=== PATIENT | female | born 1970 | race Caucasian/White ===

== ENCOUNTER 2021-02-17 11:01 | Outpatient (CLI) | payer OTHER | END 2021-02-17 11:02 | disposition home or self-care (01) | LOC: DTY/OP 11:01 | PROVIDERS: ATTEND Specialist | DX: Z01.818 Encounter for other preprocedural examination (principal); E66.01 Morbid (severe) obesity due to excess calories; Z68.44 Body mass index [BMI] 60.0-69.9, adult | CPT/HCPCS: 97802 ==

== ENCOUNTER 2021-03-19 09:47 | Outpatient (CLI) | payer MEDICARE ==
[2021-03-19 17:35] LABS: SARS-CoV-2 PCR by NAA Not Detected (NotDetected)
== END 2021-03-19 09:48 | disposition home or self-care (01) ==
LOC: LABBT 09:47
PROVIDERS: ATTEND Specialist
DX: Z01.812 Encounter for preprocedural laboratory examination (principal); K21.9 Gastro-esophageal reflux disease without esophagitis; E66.01 Morbid (severe) obesity due to excess calories; Z90.3 Acquired absence of stomach [part of]; Z68.44 Body mass index [BMI] 60.0-69.9, adult; Z20.822 Contact with and (suspected) exposure to COVID-19
CPT/HCPCS: U0003; U0005

== ENCOUNTER 2021-03-19 10:00 | Inpatient (IN) | payer MEDICARE ==
[2021-03-22 15:11] VITALS: BMI 60.2
[2021-03-24] MEDS ORDERED: ceFAZolin 2 GM/DEX 5% 100 ML BAG ONE (07:47)
[2021-03-24] MEDS ORDERED: Scopolamine 1.5 mg/72 hour Patch ONE (07:47)
[2021-03-24] MEDS ORDERED: Heparin 5,000 UNITS/ML VIAL ONE (08:02)
[2021-03-24] MEDS ORDERED: Bupivacaine 0.25% 10 ML VIAL ONE ×2 (08:08→08:09)
[2021-03-24] MEDS ORDERED: EPINEPHrine 1 MG/ML AMP ONE (08:08)
[2021-03-24] MEDS ORDERED: Midazolam HCl 2 mg/2 ml Vial ONE ×2 (08:28→12:20)
[2021-03-24] MEDS ORDERED: cefOXitin Sodium/Dextrose 2 GM/50 ML BAG ONE ×2 (08:44→11:14)
[2021-03-24] MEDS ORDERED: Ketorolac Tromethamine 30 MG/ML VIAL ONE (08:52)
[2021-03-24] MEDS ORDERED: Famotidine/PF 20 mg/2ml Vial ONE (08:57)
[2021-03-24] MEDS ORDERED: Fentanyl 100 MCG/2 ML VIAL ONE ×4 (08:57→13:50)
[2021-03-24] MEDS ORDERED: Dexamethasone 20 MG/5 ML VIAL ONE (09:25)
[2021-03-24] MEDS ORDERED: Rocuronium Bromide 10 MG/ML (10ML VIAL) ONE (09:25)
[2021-03-24] MEDS ORDERED: Ondansetron PF 4 MG/2 ML Vial ONE (09:25)
[2021-03-24] MEDS ORDERED: PROPOFOL 200 MG/20 ML VIAL ONE (09:25)
[2021-03-24] MEDS ORDERED: Lidocaine 1% PF 5 ML VIAL ONE (09:25)
[2021-03-24] MEDS ORDERED: SUGAMMADEX SODIUM 200 MG/2 ML VIAL ONE (10:35)
[2021-03-24] MEDS ORDERED: Promethazine HCl 25 MG/ML VIAL IVPB PRN (11:48)
[2021-03-24] MEDS ORDERED: HYDROmorphone 2 MG/ML VIAL SLOW IVP PRN (11:48)
[2021-03-24] MEDS ORDERED: Meperidine HCl/PF 25 MG/ML VIAL SLOW IVP PRN (11:48)
[2021-03-24] MEDS ORDERED: Promethazine HCl 25 MG/ML VIAL IM PRN ×2 (11:48→14:06)
[2021-03-24] MEDS ORDERED: Promethazine HCl 25 MG/ML VIAL ONE (12:14)
[2021-03-24] MEDS ORDERED: diphenhydrAMINE 50 MG/ML VIAL IVP PRN ×2 (13:00→14:06)
[2021-03-24] MEDS ORDERED: hydrALAZINE 20 MG/ML VIAL SLOW IVP PRN (13:00)
[2021-03-24] MEDS ORDERED: Morphine 4 MG/ML VIAL SLOW IVP PRN ×2 (13:00→13:11)
[2021-03-24] MEDS ORDERED: Ondansetron PF 4 MG/2 ML Vial IVP PRN ×2 (13:00→14:06)
[2021-03-24] MEDS ORDERED: Hydrocodone-Acetamin 15 ML UDCUP PO PRN (13:00)
[2021-03-24] MEDS ORDERED: SUMAtriptan Succinate 50 MG TAB PO PRN (13:04)
[2021-03-24] MEDS ORDERED: fentaNYL Citrate/PF 2,000 MCG in Sodium Chloride 0.9% 60 ML IV PRN (14:06)
[2021-03-24] MEDS ORDERED: diphenhydrAMINE 25 MG CAP PO PRN (14:06)
[2021-03-24] MEDS ORDERED: Naloxone HCl 0.4 mg/ml Vial IV PRN (14:06)
[2021-03-24] MEDS ORDERED: diphenhydrAMINE 50 MG/ML VIAL IM PRN (14:06)
[2021-03-24] MEDS ORDERED: Zolpidem Tartrate 5 MG TAB PO PRN (14:06)
[2021-03-24] MEDS ORDERED: PCA Communication Order-Pharmacy FS SCH (14:15)
[2021-03-24] MEDS: Ketorolac Tromethamine 30 MG/ML VIAL IVP SCH (18:12)
[2021-03-24] MEDS: D5 1/2 NS w/20 mEq KCL 1,000 ML IV SCH ×2 (18:13→23:36)
[2021-03-24] MEDS ORDERED: Enoxaparin Sodium 40 MG/0.4 ML SYRINGE SC SCH (21:00)
[2021-03-25] MEDS: Ketorolac Tromethamine 30 MG/ML VIAL IVP SCH ×2 (00:28→04:51)
[2021-03-25] MEDS: D5 1/2 NS w/20 mEq KCL 1,000 ML IV SCH (04:51)
[2021-03-25] MEDS ORDERED: Hydrocodone-Acetamin 15 ML UDCUP PO PRN (04:51)
[2021-03-25 05:30] LABS: #Lymphocytes 0.7 thou/uL (1.20-3.40); #Monocytes 1.1 thou/uL (0.11-0.59); #Neutrophils 11.7 thou/uL (1.40-6.50); %Basophils 0.2 % (0.0-1.0); %Eosinophils 0.1 % (0.0-10.0); %Lymphocytes 5.4 % (21.0-51.0); %Monocytes 7.7 % (0.0-10.0); %Neutrophils 86.6 % (42.0-75.0); Hemoglobin 12.7 g/dL (12.0-16.0); Mean Corpuscular HGB CONC 33.1 g/dL (32.0-36.0); Mean Corpuscular Hemoglobin 29.9 pg (27.0-31.0); Mean Corpuscular Volume 90.5 fL (78.0-98.0); Mean Platelet Volume 7.7 fL (7.4-10.4); Platelet Count 283 thou/uL (130-400); RBC Distribution Width 12.2 % (11.5-14.5); Red Blood Cell (RBC) Count 4.24 mill/uL (4.20-5.40); White Blood Cell (WBC) Count 13.5 thou/uL (4.8-10.8)
[2021-03-25 05:54] LABS: Anion Gap 15 mmol/L (10-20); BUN (Urea Nitrogen) 12 mg/dL (9.8-20.1); Calc. Creatinine Clearance 176 mL/min (70-130); Calcium 9.3 mg/dL (7.8-10.44); Carbon Dioxide 22 mmol/L (22-29); Chloride 107 mmol/L (98-107); Glucose 98 mg/dL (70-105); Potassium 4.8 mmol/L (3.5-5.1); Sodium 139 mmol/L (136-145)
[2021-03-25] MEDS ORDERED: Bupropion 150 MG XL TAB PO SCH (09:00)
[2021-03-25] MEDS ORDERED: Pantoprazole 40 MG VIAL IVP SCH (09:00)
[2021-03-25 11:01] VITALS: BP 112/70; TEMP 97.8
== END 2021-03-25 10:55 | disposition home or self-care (01) | DRG 621 ==
LOC: SURG A 03-24 07:10
PROVIDERS: ADMIT Specialist; ATTEND Specialist
PROC: 0D164ZA Bypass Stomach to Jejunum, Percutaneous Endoscopic Approach (ICD-10-PCS; principal; 2021-03-24)
DX: E66.01 Morbid (severe) obesity due to excess calories (principal); Z68.44 Body mass index [BMI] 60.0-69.9, adult; K21.9 Gastro-esophageal reflux disease without esophagitis; F32.A Depression, unspecified; M19.90 Unspecified osteoarthritis, unspecified site; R53.82 Chronic fatigue, unspecified; Z90.3 Acquired absence of stomach [part of]; G47.00 Insomnia, unspecified; M79.7 Fibromyalgia
CPT/HCPCS: 36415; 80048; 85025; 94760; A4649; C1713; C1889; J0171; J0694; J1100; J1644; J1650; J1885; J2250; J2405; J2550; J2704; J3010; J3480; S0020; S0028

== ENCOUNTER 2021-11-24 09:42 | Outpatient (CLI) | payer OTHER | END 2021-11-24 09:43 | disposition home or self-care (01) | PROVIDERS: ATTEND Student in an Organized Health Care Education/Training Program | DX: Z74.09 Other reduced mobility (principal); Z99.3 Dependence on wheelchair ==